=== PATIENT | male | born 1970 | race Caucasian/White ===

== ENCOUNTER 2021-06-04 02:20 | Day surgery (SDC) | payer OTHER, SELFPAY ==
[2021-05-20 14:18] VITALS: BMI 40.5
[2021-06-04 08:35] VITALS: BP 143/100; PULSE 75; RESP 16; TEMP 36.2; O2SAT 99; BMI 40.1
[2021-06-04] MEDS: LACTATED RINGERS 1,000 ML 150 ML IV CONT (08:47)
--- NOTE | 2021-06-04 09:11 | PM.HPGS ---
History of Present Illness History of Present Illness Consent: Risks, benefits, and alternatives have been discussed and questions answered. Patient agrees to proceed with procedure. Chief complaint: neoplasm screening Narrative: Pablo Cordon is a 51 year old male here for first screening colonoscopy Review of Systems Constitutional: Constitutional: Denies headache(s) and Denies weakness Eyes: Eyes: Denies blurry vision ENT: Reports Normal hearing present, Denies headache(s) and Denies neck pain Cardiovascular: Cardiovascular: Denies chest pain and Denies dyspnea Respiratory: Respiratory: Denies dyspnea Gastrointestinal: Gastrointestinal: Reports no additional gastrointestinal complaints Genitourinary: Genitourinary: Denies dysuria Musculoskeletal: Musculoskeletal: Denies neck pain Integumentary/Breasts: Skin/Breast: Denies dry skin Neurologic: Reports Normal hearing present, Denies headache(s) and Denies weakness Psychiatric: Psychiatric: Denies anxiety Endocrine: Endocrine: Denies change in body appearance Hematologic/Lymphatic: Hematologic/Lymphatic: Denies easy bleeding Allergic/Immunologic: Allergic/Immunologic: Denies urticaria PMFSH Past Medical History Medical History (Updated 04/12/21 @ 15:51 by BLANCA Rothman) Broken humerus Family History Family History (Updated 09/23/19 @ 14:43 by Oliva Rodriguez CMA) Mother Dementia Father CHF (congestive heart failure) Social History Social History (Updated 09/23/19 @ 14:44 by Oliva Rodriguez [facility]) Smoking status: Never smoker Alcohol intake: current Drinks per week: 5 Living arrangements: with family Spiritual care concerns: No Meds Home Medications and Allergies Home Medications Medication Instructions Recorded Confirmed Type fluticasone propionate 50 2 spray NASAL DAILY PRN 09/23/19 05/20/21 History mcg/actuation nasal spray,suspension Allergies Allergy/AdvReac Type Severity Reaction Status Date / Time Penicillins Allergy Mild Unknown Verified 06/04/21 08:35 Vital Signs Vital Signs - 24 hr 06/04/21 08:35 Temperature 97.1 F L Pulse Rate 75 Respiratory Rate 16 Blood Pressure 143/100 H Pulse Oximetry 99 Exam Const: General: comfortable and no acute distress HENMT: General nose exam: Normal nares present Eyes: General: appearance normal, both eyes and all related structures Neck: Neck: no JVD Resp: Auscultation: clear to auscultation bilaterally Cardio: Rate: regular rate Rhythm: regular rhythm GI: Inspection: non-distended GI Palp: Yes Soft to palpation Skin: General skin exam: normal color Neuro: General: gait normal Speech: normal speech Extrem: General: normal to inspection Psych: Mental Status: mental status grossly normal Assessment and Plan Assessment and plan (1) Screening for colon cancer: Code(s): Z12.11 - Encounter for screening for malignant neoplasm of colon Status: Acute Assessment and Plan: colonoscopy
--- NOTE | 2021-06-04 09:14 | P.PNAN_ITS ---
Anes - Initial Pre Proc Eval Procedure: Operation Date: 06/04/21 09:30 Proposed Procedures p Screening Colonoscopy - Mac Don MD Date/Time: 06/04/21 09:14 Surgeon: Mac Don MD Pre Op Diagnosis: neoplasm screening Patient Data Age: 51 Gender: M Height: 1.75 m Weight: 123.2 kg Last Vital Signs Temp 97.1 F L 06/04/21 08:35 Pulse 75 06/04/21 08:35 Resp 16 06/04/21 08:35 BP 143/100 H 06/04/21 08:35 Pulse Ox 99 06/04/21 08:35 Allergies Allergy/AdvReac Type Severity Reaction Status Date / Time Penicillins Allergy Mild Unknown Verified 06/04/21 08:35 Home Medications Medication Instructions Recorded Confirmed Type fluticasone propionate 50 2 spray NASAL DAILY PRN 09/23/19 05/20/21 History mcg/actuation nasal spray,suspension Patient hx anesthesia problems: none Family hx anesthesia problems: none Results Review: All pre-operative results and documents have been reviewed as part of the pre-operative evaluation. [facility] Past Medical History Medical History (Updated 06/04/21 @ 09:14 by Pablo Mims MD) Broken humerus Obesity Family History Family History (Updated 09/23/19 @ 14:43 by Oliva Rodriguez CMA) Mother Dementia Father CHF (congestive heart failure) Social History Social History (Updated 09/23/19 @ 14:44 by Oliva Rodriguez CMA) Smoking status: Never smoker Alcohol intake: current Drinks per week: 5 Living arrangements: with family Spiritual care concerns: No Anes - Eval Final PreProcedure Day of Procedure 06/04/21 09:14 Patient weight: morbidly obese Heart: regular rate and rhythm Lungs: clear to auscultation Airway: Mallampati scale class II Neurological: alert and oriented Last oral intake: >/= 8 hours ASA classification: III Emergent: no Anesthetic plan: proceed Anesthesia type and monitoring: general GIVS and standard monitoring Results Review: All pre-operative results and documents have been reviewed as part of the pre-operative evaluation. Informed Consent: The patient's anesthetic plan and its attendant risks and benefits were discussed with the patient/family/POA. Questions were solicited and answers provided to the satisfaction of the patient/family/POA.
[2021-06-04 09:28] VITALS: BP 121/74; PULSE 90; RESP 16; O2SAT 98
[2021-06-04 09:38] VITALS: BP 125/77; PULSE 67; RESP 16; O2SAT 98
[2021-06-04 09:47] VITALS: BP 132/80; PULSE 65; RESP 16; O2SAT 98
== END 2021-06-04 09:54 | disposition home or self-care (01) ==
PROVIDERS: PCP Internal Medicine; Visit Provider Internal Medicine Gastroenterology
PROC: 0DJD8ZZ Inspection of Lower Intestinal Tract, Via Natural or Artificial Opening Endoscopic (ICD-10-PCS; CPT 45378; principal; 2021-06-04 09:30)
DX: Z12.11 Encounter for screening for malignant neoplasm of colon (principal); E66.01 Morbid (severe) obesity due to excess calories; Z68.41 Body mass index [BMI] 40.0-44.9, adult
CPT/HCPCS: 45378; J2704; J7120

== ENCOUNTER 2022-07-14 08:06 | Emergency (ER) | payer OTHER, SELFPAY ==
--- NOTE | 2022-07-14 08:10 | ED.URI ---
HPI - URI/Sore Throat General Chief Complaint: Upper Respiratory Infection Stated Complaint: sore throat, headache, cough Time Seen by Provider: 07/14/22 08:28 Source: patient, RN notes reviewed and old records reviewed Mode of arrival: ambulatory Limitations: no limitations History of Present Illness HPI Narrative: 52-year-old male presents to the [facility] with complaints of sore throat, headache, cough for for 10 days. The sore throat has gotten worse over the last 5 days. Denies fevers, chest pain, abdominal pain. States he has been taking Mucinex. Has not been using his Flonase on a regular basis. Related Data Allergies Allergy/AdvReac Type Severity Reaction Status Date / Time Penicillins Allergy Mild Unknown Verified 07/14/22 08:21 Review of Systems Review of Systems: All systems reviewed & are unremarkable except as noted in HPI and below Constitutional: Constitutional: Reports as per HPI and Reports headache(s) Eyes: Eyes: Reports no additional eye complaints ENT: Reports as per HPI and Reports sore throat Cardiovascular: Cardiovascular: Reports no additional cardiovascular complaints, Denies chest pain and Denies dyspnea Respiratory: Respiratory: Reports as per HPI, Reports no additional respiratory complaints, Denies chest congestion, Reports cough and Denies dyspnea Gastrointestinal: Gastrointestinal: Reports no additional gastrointestinal complaints Musculoskeletal: Musculoskeletal: Reports no additional musculoskeletal complaints Integumentary/Breasts: Skin/Breast: Reports system reviewed and no additional complaints, except as docu Neurologic: Reports system reviewed and no additional complaints, except as documented Psychiatric: Psychiatric: Reports no additional psychiatric complaints Allergic/Immunologic: Allergic/Immunologic: Reports no additional allergic/immunologic complaints [facility] Past Medical History Medical History Broken humerus Obesity Family History Family History Mother Dementia Father CHF (congestive heart failure) Social History Social History Smoking status: Never smoker Alcohol intake: current Drinks per week: 5 Spiritual care concerns: No Comments At the time of my signature, I reviewed and agree with the nursing past medical, surgical, social, and family history. There is no relevant family history pertinent to the patient complaint. Exam Const: General: cooperative, healthy appearing, comfortable, no acute distress, well developed, alert and average body habitus Nutritional Appearance: well nourished and obese Orientation/consciousness: patient oriented x3 Limitations: no limitations HENMT: Head: normal to inspection Ears: hearing grossly normal bilaterally Face/Nose/Sinus: Normal external nose present, Normal nares present, Normal nasal mucous membranes and turbinates present and normal facial exam Face and sinus: normal facial exam Mouth: Yes Normal oral and palatal mucosa present, Yes lip normal and Yes moist mucous membranes Throat: uvula midline, posterior oropharynx abnormal erythema; no cobblstoning, no edema and no exudates and postnasal drainage Eyes: General: appearance normal, both eyes and all related structures Alignment and Position: alignment normal Periorbital: periorbital findings normal Conjunctivae: conjunctivae normal Pupils: Equal, round and reactive pupils present EOM: EOMs intact bilaterally Neck: Neck: normal visual inspection, full ROM, no lymphadenopathy and no meningeal signs Chest: Chest palpation & inspection: normal inspection of the chest Resp: Effort & Inspection: normal respiratory effort and able to speak in complete sentences Auscultation: clear to auscultation bilaterally, no crackles, no rales, no rhonchi and no wheezes Cardio: Rate: regular rat
[2022-07-14 08:16] VITALS: BP 124/88; PULSE 72; RESP 16; TEMP 36.7; O2SAT 99
== END 2022-07-14 08:54 | disposition home or self-care (01) ==
PROVIDERS: Emergency Provider Nurse Practitioner; PCP Internal Medicine
DX: J32.9 Chronic sinusitis, unspecified (principal); R09.82 Postnasal drip; E66.9 Obesity, unspecified; Z68.38 Body mass index [BMI] 38.0-38.9, adult
CPT/HCPCS: 87081; 87880; 99213; G0463

== ENCOUNTER 2023-04-27 18:23 | Observation (INO) | payer OTHER, SELFPAY ==
--- NOTE | ~2023-04-27 | XR_ITS ---
EXAMINATION: XR shoulder RT min 2V INDICATION: Right shoulder pain TECHNIQUE: Four views of the right shoulder are submitted. COMPARISON: None FINDINGS: Normal alignment. No fracture. There is moderate to severe osteoarthritis of the acromiocla vicular and glenohumeral joints. Soft tissues are unremarkable. IMPRESSION: 1. Osteoarthritis without acute osseous abnormality. Reviewed, dictated and finalized at location F.
--- NOTE | ~2023-04-27 | XR_ITS ---
EXAMINATION: XR hip LT 2V w AP pelvis INDICATION: Left hip pain TECHNIQUE: AP view the pelvis and two views of the left hip are obtained. COMPARISON: None available FINDINGS: There is mild osteoarthritis of the hips. Bone alignment is normal. There is no fracture. IMPRESSION: 1. No acute osseous abnormality. Reviewed, dictated and finalized at location F.
--- NOTE | ~2023-04-27 | CT_ITS ---
Non-contrast CT scan of the Pelvis Clinical indication: Left hip pain Technique: 2.5 mm axial scans were obtained through the pelvis without intravenous or oral contrast. Dose reduction technique was used on this scan by utilizing automated exposure control and iterative reconstruction technique. The dose-length product (DLP) was 818.82 mGy-cm. Findings: No fracture or dislocation seen. Joint spaces are preserved. No soft tissue mass or fluid c ollection seen. Visualized bowel loops are unremarkable. No pelvic lymphadenopathy seen. Urinary bladder unremarkable . Prostate gland and seminal vesicles are unremarkable. Impression: No significant abnormality seen. Reviewed, dictated and finalized at location . Impression: No significant abnormality seen.
--- NOTE | ~2023-04-27 | CT_ITS ---
EXAMINATION: CT brain wo con INDICATION: Transient alteration of awareness COMPARISON: None TECHNIQUE: Standard unenhanced head CT. The dose-length product (DLP) was 605.33 mGy-cm. The mA was a djusted according to patient size. Iterative reconstruction technique was employed. FINDINGS: No intracranial hemorrhage, acute infarction, or abnormal mass lesion. The ventricles are n ormal. No abnormal mass effect or midline shift. The fan-white matter differentiation is normal. The basal cisterns are patent. The orbits are normal. The paranasal sinuses, mastoids and calvarium are normal. IMPRESSION: 1. No acute intracranial abnormality. Reviewed, dictated and finalized at location F.
--- NOTE | ~2023-04-27 | MR_ITS ---
EXAMINATION: MR hip LT wo/w con DATE: 04/29/2023 13:02 INDICATION: Left hip injury now nonweightbearing due to pain TECHNIQUE: Magnetic resonance imaging (MRI) of the left hip was performed without and with 20 mL Mul tihance intravenous contrast. Sequences included full-field axial PD-weighted FS FSE and T1-weighted FSE, coronal of the pelvis with PD-weighted FS FSE, small field of view of the affected hip with axi al PD-weighted FS FSE, sagittal PD-weighted FS FSE and coronal PD weighted FS FSE. Additional radial T1-weighted FGR oriented orthogonal to the acetabular rim were obtained for evaluation of the labrum. Postcontrast T1-weighted FS FSE sequences were also obtained in the axial and coronal planes of the full pelvis and with small field of view of the left hip in the coronal plane. COMPARISON: None FINDINGS: Bones/labrum/cartilage: Alignment is normal. No fracture, avascular necrosis or pathologic marrow replacing process. Mild le ft hip osteoarthritis with nonuniform joint space narrowing and posterosuperior predominant partial-t hickness cartilage loss. Tiny degenerative subchondral cyst at the posterior superior rim of the left acetabulum. There is associated degeneration of the anterosuperior to posterior superior left acetab ular labrum. Mild lumbar spondylosis. Fluid: Symmetric physiologic amount of fluid within both hip joints. Soft tissues: No asymmetric muscular atrophy in the pelvis and proximal thighs. There is a tear of the proximal lef t iliotibial band and gluteal aponeurosis with associated mild feathery muscular edema in the superfi cial aspect of the underlying gluteus medius muscle belly and small amount fluid tracking along the d eep margin of the more distal iliotibial band. The tear appears to involve the majority the cross-sec tional width of the iliotibial band. The bilateral iliopsoas, gluteal medius and minimus and proximal hamstring tendons are normal. Limited evaluation of visceral organs of the pelvis is unremarkable. No pathologically enlarged pelvic/inguinal lymphadenopathy. IMPRESSION: 1. High-grade partial tear of the left proximal iliotibial band and gluteal aponeurosis. 2. Mild left hip osteoarthritis with likely chronic labral degeneration. Reviewed, dictated and finalized at location A. IMPRESSION: 1. High-grade partial tear of the left proximal iliotibial band and gluteal apo neurosis. 2. Mild left hip osteoarthritis with likely chronic labral degeneration.
[2023-04-27 18:25] VITALS: BP 133/89; PULSE 66; RESP 15; TEMP 37; O2SAT 99
--- NOTE | 2023-04-27 18:27 | ECG_ITS ---
Measurements Intervals [place] Rate: 65 P: 27 ID: [id number] QRS: 26 QRSD: 85 T: 3 QT: 399 QTc: 416 Interpretive Statements SINUS RHYTHM BORDERLINE T WAVE ABNORMALITY- INFERIOR LEADS BORDERLINE ECG NO PREVIOUS ECG AVAILABLE FOR COMPARISON Electronically Signed On 04-28-2023 6:28:52 CDT by Leon Horne D.O.
--- NOTE | 2023-04-27 18:59 | ED.SYNCOPE ---
HPI - Syncope General Chief Complaint: Syncope Stated Complaint: fall, syncopal episode, left hip pain Time Seen by Provider: 04/27/23 18:24 Source: patient Mode of arrival: EMS Limitations: no limitations History of Present Illness HPI narrative: Patient is a 53-year-old male who presents to the ED via EMS with report of left hip pain and syncope. Patient reports he was at a soccer practice tonight and went to kick a soccer ball when he developed pain in his left hip. He states he planted his left foot in the ground and went to kick with his right foot and felt pain and a large pop in his left hip. He states his hip felt very unstable, like the hip was trying to push forward out of the socket anytime he tried to bear weight on his left leg. Patient sat on the ground and waited for other parents to come help him. As he was walking off the field with the parents he began feeling dizzy, lightheaded, clammy, sweaty, nauseous. He then had a syncopal episode. He did not fall or hit his head. He regained consciousness quickly. Patient mentions when the syncopal episode happened he also felt a pop in his right shoulder. He does report chronic pain in his right shoulder, but currently worse than usual. He denies any chest pain, shortness of breath, abdominal pain, numbness, tingling, focal weakness. Related Data Home Medications Medication Instructions Recorded Confirmed No Home Medications 11/25/22 11/25/22 Allergies Allergy/AdvReac Type Severity Reaction Status Date / Time Penicillins Allergy Mild Unknown Verified 04/27/23 19:17 Review of Systems Review of Systems: CONSTITUTIONAL: Denies fever, chills, or sweats. EYES: Denies visual changes. CARDIOVASCULAR: Denies chest pain. RESPIRATORY: Denies dyspnea. GASTROINTESTINAL: See HPI. MUSCULOSKELETAL: See HPI. NEUROLOGIC: See HPI. All systems reviewed & are unremarkable except as noted in HPI and below PMFSH Past Medical History Medical History Broken humerus Obesity Family History Family History Mother Dementia Father CHF (congestive heart failure) Social History Social History (Reviewed 04/27/23 @ 19:08 by ASHLY Baugh Smoking status: Never smoker Alcohol intake: current Drinks per week: 5 Lack of Transportation: No Lack of Food: Never True Current Housing: I Have Housing Concerned About Future Housing: No Difficulty Paying Gas/Electric Bills: No Difficulty Paying for Meds: No Currently Unemployed: No Education: Bachelor's Degree Difficulty w/ Childcare or Family Care: No Living arrangements: with family Spiritual care concerns: No Exam Narrative: GENERAL: Well appearing, obese with BMI of 37.1, non-toxic, in no acute distress. HEAD: Normocephalic, atraumatic. NECK: Supple. No adenopathy, no masses. RESPIRATORY: Airway patent, respirations nonlabored. Clear to auscultation bilaterally, no rales, rhonchi, wheezing. CARDIOVASCULAR: Regular rate and rhythm without murmurs, rubs, or gallops. Pedal pulses 2+ and equal bilaterally. ABDOMINAL: Soft, nontender, nondistended, no hepatosplenomegaly. Normoactive BS. MUSCULOSKELETAL: Able to flex and extend at left hip, but apprehensive to move. Tenderness to palpation along posterior left hip joint. Sensation intact throughout left lower leg. Mild tenderness along superior right shoulder, over area of AC joint. No palpable deformity or tenting of skin. Sensation intact. SKIN: Warm, dry, normal color. No rashes. NEURO: A&O X3. Speech clear. Cranial nerves II-XII grossly intact. Steady gait. No ataxic movements. No focal deficits. PSYCHIATRIC: Appropriate mood and affect. Normal interaction. Course Vital Signs Vital signs: Vital Signs Temperature 98.6 F 04/27/23 18:25 Pulse Rate 66 04/27/23 18:25 Respiratory Rate 15 04/27
[2023-04-27 19:13] VITALS: BP 130/84; PULSE 66; RESP 13; O2SAT 98
[2023-04-27] MEDS: ONDANSETRON INJ 4 MG/2 ML VIAL IV PUSH ×2 (20:07→23:02)
[2023-04-27] MEDS: MORPHINE SULFATE (*CRX) 4 MG/ML INJ IV PUSH (20:07)
[2023-04-27] MEDS: SODIUM CHLORIDE 0.9% IV 1,000 ML 999 ML IV CONT ×2 (20:07→22:59)
[2023-04-27 20:26] LABS: Basophils Absolute Auto 0.1 K/mm3 (0.0-0.1); Basophils Percent Auto 0.6 % (0.2-1.2); Eosinophils Absolute Auto 0.2 K/mm3 (0-0.3); Eosinophils Percent Auto 1.1 % (0-4.4); Hematocrit 45.9 % (42.0-52.0); Hemoglobin 15.6 g/dL (14.0-18.0); Immature Granulocyte Absolute 0.05 K/mm3 (0.00-0.031); Immature Granulocyte Percent A 0.4 % (0-0.5); Lymphocytes Absolute Auto 1.61 K/mm3 (0.9-3.2); Lymphocytes Percent Auto 11.4 % (18.3-44.2); Mean Corpuscular Hemoglobin 31.6 pg (26-34); Mean Corpuscular Volume 92.9 fl (80-100); Monocytes Absolute Auto 1.1 K/mm3 (0.1-0.6); Monocytes Percent Auto 7.7 % (2.6-8.5); Neutrophils Absolute Auto 11.1 K/mm3 (1.3-6.7); Neutrophils Percent Auto 78.8 % (45.5-73.1); Platelet Count Result 279 k/mm3 (150-375); Red Blood Count 4.94 M/mm3 (4.6-6.20); Red Cell Distribution Width 12.7 % (11.5-14.5); White Blood Count 14.1 K/mm3 (4.5-10.0)
[2023-04-27 20:34] LABS: Magnesium 2.1 mg/dL (1.6-2.3)
[2023-04-27 20:36] LABS: Prothrombin Time 14.1 Seconds (11.1-14.7)
[2023-04-27 20:37] LABS: Partial Thromboplastin Time 24.1 SECONDS (22.3-36.8)
[2023-04-27 21:13] VITALS: BP 139/80; PULSE 66; RESP 12; O2SAT 100
[2023-04-27 21:49] LABS: Alanine Aminotransferase 39 U/L (6-50); Albumin Level 4.3 g/dL (3.5-5.1); Alkaline Phosphatase 65 U/L (38-126); Anion Gap 7 mmol/L (8-16); Aspartate Amino Transferase 36 U/L (17-59); Bilirubin,Total 0.5 mg/dL (0.2-1.3); Blood Urea Nitrogen 25 mg/dL (9-20); Calcium 8.8 mg/dL (8.4-10.2); Carbon Dioxide 26 mmol/L (22-30); Chloride 105 mmol/L (98-107); Estimated CRCL calculation 88 ml/min; Estimated Glomerular Filt Rate > 60; Glucose 103 mg/dL (65-110); Potassium 4.2 mmol/L (3.4-5.0); Sodium 138 mmol/L (137-145)
[2023-04-27 21:52] LABS: Troponin I < 0.012 ng/mL (0.000-0.034)
[2023-04-27 23:02] LABS: Glucose Point of Care 114 mg/dl (65-105)
[2023-04-27 23:05] VITALS: PULSE 64
[2023-04-27 23:06] VITALS: BP 142/78; PULSE 68; RESP 15; TEMP 36.3; O2SAT 97
[2023-04-28] VITALS (10 sets, daily range): BP systolic 110–155; BP diastolic 63–75; PULSE 60–88; RESP 15–20; TEMP 36.6–36.7; O2SAT 96–99; BMI 38.7
[2023-04-28] MEDS: KETOROLAC 30 MG/ML VIAL (*BKC) IV PUSH ×3 (00:56→19:45)
[2023-04-28] MEDS: SODIUM CHLORIDE 0.9% IV 1,000 ML 125 ML IV CONT ×2 (00:57→08:47)
--- NOTE | 2023-04-28 02:54 | ADMGEN ---
This patient, Pablo Cordon, was admitted to Medical Room 258-01. Patient/family oriented to hospital policies and general routines including ID bracelet, bed and alarms, visiting hours, pain management, procedures, bathroom and other care routines, personal items, smoking policy, room service/diet, and visiting hours. Information on how to activate the Rapid Response Team has been discussed. Patient/Family are encouraged to report perceived risks to care and to ask questions if they do not understand what they are told or what they should do.
[2023-04-28] MEDS: MORPHINE SULFATE (*CRX) 4 MG/ML INJ IV PUSH (08:14)
--- NOTE | 2023-04-28 08:59 | PM.IMHP ---
H&P: HPI History of Present Illness Date/Time: 04/28/23 08:59 Chief Complaint: Left hip pain right shoulder pain and syncopal episodes Narrative: Patient reports that he was playing soccer with his kids and he went to kick the ball planted his left foot and felt his hip bone move like it had gone out of place. Patient was unable to bear weight on hip and had to be assisted off the field. While being assisted off the field he passed out nearly and this caused pain to his right clavicle shoulder area. Patient has a past history of arthroscopic be to right shoulder no medical history no current medications he is up-to-date with yearly visits with primary care last having seen them couple of months ago. Patient also reports having a clean colonoscopy last year. He reports that sitting on the edge of the bed he feels some numbness in his left leg and severe pain in his left hip. orthopedics was requested by ER provider for evaluation. Appreciate recommendations. Patient's syncopal episodes appears to be related to pain. He also experiences nausea when they happen but he is not nauseous at rest. Review of Systems Review of Systems: All systems reviewed & are unremarkable except as noted in HPI and below PMFSH Past Medical History Medical History Broken humerus Obesity Family History Family History Mother Dementia Father CHF (congestive heart failure) Social History Social History Smoking status: Never smoker Alcohol intake: former Drinks per week: 5 Substance use: never Substance use type: does not use Lack of Transportation: No Lack of Food: Never True Current Housing: I Have Housing Concerned About Future Housing: No Difficulty Paying Gas/Electric Bills: No Difficulty Paying for Meds: No Currently Unemployed: No Education: Bachelor's Degree Difficulty w/ Childcare or Family Care: No Living arrangements: with family Spiritual care concerns: No Meds Home Medications and Allergies Home Medications Medication Instructions Recorded Confirmed Type No Home Medications 11/25/22 04/28/23 History Allergies Allergy/AdvReac Type Severity Reaction Status Date / Time Penicillins Allergy Mild Unknown Verified 04/28/23 06:18 Vital Signs Vital Signs - 24 hr 04/27/23 18:25 04/27/23 19:13 04/27/23 21:13 Temperature 37.0 C Pulse Rate 66 66 66 Respiratory Rate 15 13 12 Blood Pressure 133/89 130/84 139/80 Pulse Oximetry 99 98 100 Oxygen Delivery Room Air 04/27/23 23:05 04/27/23 23:06 04/28/23 01:09 Temperature 36.3 C L 36.6 C Pulse Rate 64 68 88 Respiratory Rate 15 15 Blood Pressure 142/78 H 110/63 Pulse Oximetry 97 99 Oxygen Delivery 04/28/23 03:00 04/28/23 04:00 04/28/23 05:00 Temperature 36.7 C Pulse Rate 88 60 72 Respiratory Rate 15 18 Blood Pressure 140/63 Pulse Oximetry 99 96 Oxygen Delivery Room Air Exam Narrative: GENERAL: Generally well appearing, alert and oriented, in no apparent distress. He is pleasant and conversant in full sentences. HEENT: Pupils are equally round and briskly reactive to light. Extraocular muscles are intact. Oral mucous membranes are moist without lesions. NECK: The patient has no noted JVD. No adenopathy is appreciated. CHEST/LUNGS: Lungs are clear bilaterally without rhonchi, rales, or wheezes. HEART: The patient has a regular rate and rhythm. No murmurs, rubs, or gallops are appreciated. Distal pulses are 2+. ABDOMEN: The patient's abdomen is soft, nontender, and nondistended. Bowel sounds are positive. No peritoneal signs EXTREMITIES: The patient has no peripheral edema. There is no focal long bone tenderness or deformity. Pain with palpation of left hip and pain to right clavicle area with arm ROM. Pt able to flex hip but not bear a
--- NOTE | 2023-04-28 14:54 | PM.CNOR ---
Assessment and Plan Assessment and plan (1) Contusion of left hip: Code(s): S70.02XA - Contusion of left hip, initial encounter Status: Acute Assessment and Plan: ANAIS IS HERE FOR F/U OF HIS LEFT HIP PAIN AFTER KICKING A SOCCER BALL, HE HAS TENDERNESS OVER THE LATERAL AND ANTERIOR LATERAL HIP REGION. HE HAS NO HAMSTRING PAIN OR TENDERNESS. HE HAS NO RECTUS FEMORIS PAIN. IMPRESSION IS POSSIBLE TENSOR FASCIA KATIE VERSUS GLUTEUS MEDIUS STRAIN VS TEAR. RECOMMEND MRI IMAGING OF THE LEFT HIP. FOR NOW WE WILL GET PT TO WORK WITH HIM. HE MAY BE WBAT FOR NOW. HE MAY HAVE THE MRI DONE AN INPATIENT OR AN OUT PATIENT IF HE CHOOSES, THEN F/U WITH MY OFFICE WELL ONCE THE MRI IS PREFORMED. (2) Right shoulder pain: Qualifiers: Chronicity: chronic Qualified Code(s): M25.511 - Pain in right shoulder; G89.29 - Other chronic pain Code(s): M25.511 - Pain in right shoulder Status: Acute History of Present Illness HPI Consult date: 04/28/23 Chief complaint: L Hip Pain/Strain, Vasovagal Near Syncope/Syncope Narrative: ANAIS WAS ADMITTED TO THE ED LAST EVENING C/O LEFT HIP PAIN AND SYNCOPAL EPISODE AFTER KICKING A SOCCER BALL AND TWISTED THE LEFT HIP. HE FELT PAIN AT THE POSTERIOR LATERAL REGION OF THE HIP AND HAD FEELINGS OF LIGHT HEADEDNESS WELL. HE WAS THEN PLACED ON THE GROUND BY FRIENDS AND WAS UNABLE TO BEAR WEIGHT ON THE LEFT LEG. HE WAS SEEN IN THE ED AND HAD XRAYS OF THE HIP AND HEAD CT WITH NO EVIDENCE OF ABNORMALITY. HE CURRENTLY COMPLAINS OF LEFT HIP AND RIGHT SHOULDER PAIN. HE STATES HIS PAIN IS LATERAL POSTERIOR AND HE HAS SOME GROIN PAIN WELL. HE HAS NO BUTTOCK PAIN OR PAIN OVER THE HAMSTRING REGION. HE DENIES ANY LOW BACK PAIN OR RADIATING PAIN DOWN THE THIGH OR LOWER LEG. HISTORY, EXAM AND RADIOGRAPHS REVIEWED WITH THE PATIENT. REFERRING PHYSICIAN RECORDS AND IMAGES REVIEWED. CONDITION, NATURE, ETIOLOGY AND COURSE OF NATURAL HISTORY REVIEWED. CONSERVATIVE AND OPERATIVE TREATMENT OPTIONS REVIEWED WELL THE RISKS AND BENEFITS OF EACH. Review of Systems Review of Systems: All systems reviewed & are unremarkable except as noted in HPI and below Musculoskeletal: Musculoskeletal: Reports no additional musculoskeletal complaints, Denies back pain, Denies atrophy, Denies deformity, Denies joint swelling, Denies numbness, Denies radiating pain into limb and Denies tingling Neurologic: Reports Normal hearing present, Denies Neuro-related abnormal movements, Denies Abnormal speech present, Denies burning sensations, Denies vertigo, Reports syncope, Denies loss of vision, Denies numbness, Denies radicular pain, Denies seizure-like activity, Denies Sensory deficit (Neuro), Denies tingling, Denies paresthesias and Denies tremor(s) PMFSH Past Medical History Medical History Broken humerus Obesity Family History Family History Mother Dementia Father CHF (congestive heart failure) Social History Social History Smoking status: Never smoker Alcohol intake: former Drinks per week: 5 Substance use: never Substance use type: does not use Lack of Transportation: No Lack of Food: Never True Current Housing: I Have Housing Concerned About Future Housing: No Difficulty Paying Gas/Electric Bills: No Difficulty Paying for Meds: No Currently Unemployed: No Education: Bachelor's Degree Difficulty w/ Childcare or Family Care: No Living arrangements: with family Spiritual care concerns: No Meds Home Medications and Allergies Home Medications Medication Instructions Recorded Confirmed Type No Home Medications 11/25/22 04/28/23 History Allergies Allergy/AdvReac Type Severity Reaction Status Date / Time Penicillins Allergy Mild Unknown Verified 04/28/23 06:18 Vital Signs Vital S
[2023-04-29] VITALS: PULSE 68
[2023-04-29 04:00] VITALS: PULSE 58
[2023-04-29 04:59] VITALS: BP 113/65; PULSE 62; RESP 20; TEMP 36.4; O2SAT 96
[2023-04-29 08:00] VITALS: PULSE 75
[2023-04-29] MEDS: KETOROLAC 30 MG/ML VIAL (*BKC) IV PUSH ×2 (08:19→16:03)
--- NOTE | 2023-04-29 08:25 | PM.PNORT ---
Progress Note: A&P Assessment and Plan (1) Contusion of left hip: Qualifiers: Encounter type: initial encounter Qualified Code(s): S70.02XA - Contusion of left hip, initial encounter Code(s): S70.02XA - Contusion of left hip, initial encounter Status: Acute (2) Strain of left hip: Qualifiers: Encounter type: initial encounter Qualified Code(s): S76.012A - Strain of muscle, fascia and tendon of left hip, initial encounter Code(s): S76.012A - Strain of muscle, fascia and tendon of left hip, initial encounter Status: Acute Assessment and Plan: Patient states pain a little bit better today. Able to get up with walker and moved to chair, bathroom. May continue weight-bearing and activity as tolerated. Use of walker. PT /OT. Awaiting MRI. (3) Right shoulder pain: Qualifiers: Chronicity: chronic Qualified Code(s): M25.511 - Pain in right shoulder; G89.29 - Other chronic pain Code(s): M25.511 - Pain in right shoulder Status: Acute Subjective Subjective Date/Time Seen: 04/29/23 08:25 Principal diagnosis: Left hip pain Interval history: states pain little bit better today. Localizes pain to the posterolateral left hip. Radiates down posterior thigh and into buttock. Denies numbness or tingling. Right shoulder pain with arm movement. Denies numbness or tingling. Exam Back/Spine/Pelvis: Back: no CVA tenderness, No sacral edema, No ecchymosis and No back tenderness Cervical Spine: normal cervical lordosis, cervical ROM normal, No cervical muscular tenderness, No pain with cervical ROM and No Cervical spine tenderness Thoracic/Lumbar Spine: thoracic and lumbar spine normal to inspection, thoraco-lumbar ROM normal, No paraspinal muscle tenderness, No thoraco-lumbar spasm and No lumbar spinal tenderness Neuro: Motor exam (neuro): 5/5 motor strength present throughout Sensory Exam: normal sensation Extrem: Right upper extremity: normal to inspection, normal capillary refill, shoulder/upper arm normal to inspection, tenderness of the clavicle mid-shaft; not of the A-C joint, not of the proximal humerus and not of the mid-shaft humerus, axillary nerve sensory function normal and crepitus; no swelling, no abrasions, no lacerations, no ecchymosis, no penetrating wound and no deformity and elbow/forearm normal to inspection, tenderness and swelling Left lower extremity: normal to inspection, normal capillary refill, hip/thigh Details: normal to inspection, tenderness Location: of the hip Location: laterally, anterolaterally and posterolaterally, normal ROM and abnormal ROM Details: pain with active ROM Details: with ABduction, with flexion, with internal rotation and with external rotation; no pain with passive ROM, knee Details: normal to inspection, normal ROM, knee ligament exam normal and Dillan's Test; no tenderness, no swelling and no crepitus, lower leg Details: normal to inspection and palpable cord; no tenderness and no localized swelling, ankle Details: normal to inspection and normal ROM; no tenderness and no swelling and foot Details: normal capillary refill, normal to inspection, toes with normal ROM and motor-sensory exam light-touch normal; no tenderness Objective Data Vital Signs Vital Signs: Vital Signs - 24 hr 04/28/23 12:00 04/28/23 14:55 04/28/23 16:00 Temperature 98 F Pulse Rate 68 67 70 Respiratory Rate 18 Blood Pressure 148/71 H Pulse Oximetry 97 Oxygen Delivery 04/28/23 20:24 04/28/23 20:00 04/28/23 20:00 Temperature 97.8 F Pulse Rate 66 66 65 Respiratory Rate 20 20 Blood Pressure 155/75 H Pulse Oximetry 97 97 Oxygen Delivery Room Air 04/29/23 00:00 04/29/23 04:00 04/29/23 04:59 Temperature 97.6 F Pulse Rate 68 58 L 62 Respiratory Rate 20 Blood Pressure 113/65 Pulse Oximetry 96 Oxygen Delivery Intake/Output Intake/Output: Intake & Output 04/26/23 04/27/23 04/28/2304/29
--- NOTE | 2023-04-29 12:19 | PM.DS ---
DS: Admitting Diagnosis Discharge Date 04/29/2023 Admitting Diagnosis syncope, strain of left hip, unable to ambulate, right shoulder pain DS: Discharge Diagnosis Discharge Diagnosis (1) Syncope: Code(s): R55 - Syncope and collapse Status: Acute (2) Strain of left hip: Qualifiers: Encounter type: initial encounter Qualified Code(s): S76.012A - Strain of muscle, fascia and tendon of left hip, initial encounter Code(s): S76.012A - Strain of muscle, fascia and tendon of left hip, initial encounter Status: Acute (3) Unable to ambulate: Code(s): R26.2 - Difficulty in walking, not elsewhere classified Status: Acute (4) Right shoulder pain: Qualifiers: Chronicity: chronic Qualified Code(s): M25.511 - Pain in right shoulder; G89.29 - Other chronic pain Code(s): M25.511 - Pain in right shoulder Status: Acute Plan orthopedics consulted, appreciate recommendations and plan. CT of the pelvis and x-ray pelvis and hip negative for fracture. Patient describes laxity in the joint. Suspect significant soft tissue injury. Patient complains of right clavicular pain, right shoulder x-ray is negative. No bony instability noted to clavicular palpation. Suspect soft tissue injury. Home medications: Patient does not take any medications at home diet: Regular diet activity: As tolerated at this time pending Orthopedics evaluation, patient having trouble dangling legs over the bed PT and OT requested by the ER please defer evaluation until after orthopedics plan patient admitted to main campus medical center due to syncope. If no arrhythmia will discontinue telemetry tomorrow pain control: Tylenol, ketorolac, morphine p.r.n. code status: Full code DS: Summary Hospital Course Reason for hospitalization: this is a 53-year-old male patient who is admitted to the hospital due to inability to ambulate after planting his left foot to kick a soccer ball and collapsing from pain. While being assisted off field patient had a syncopal episode which caused his right shoulder to get pulled as others were trying to hold him up. Hospital Course: Patient had syncopal episode when trying to bear weight on his left leg so he was brought to the emergency department for evaluation. No fractured bones noted. Patient was attempting to discharge home and had another syncopal event with weight-bearing while in the emergency department. For this reason patient was admitted to the hospital. He was seen in consultation by Orthopedic surgery. MRI of the hip was ordered. Patient improved with IV concern for lack was able to participate with therapy including ambulating with a walker and able to climb a couple stairs. Patient has 2 steps to get into his home. While awaiting MRI results patient stated that he felt he could handle discharge home with ibuprofen as he was doing well with therapy. He is aware that MRI results are not finalized at time of discharge. He is aware that he will need orthopedic follow-up and that orthopedic service would write for outpatient therapy services. Work note provided. MRI results were available next morning for me to review, patient has near complete tear of proximal left iliotibial band as well as an additional tear the gluteus. I called results to patient and reinforced need to follow up with Orthopedic surgery at likely need for outpatient therapy services. Status at Discharge Cognitive/behavioral status at discharge: Awake alert oriented and very pleasant Functional status at discharge: uses cane/walker Overall status at discharge: patient is progressing back to baseline Time Spent with Patient Time attestation: Total time spent providing and/or coordinating discharge services: Time spent: Greater than 30 minutes Specific discharge activities: [id number] discussion regarding MRI results not being complete but patient still wishing to discharge. Exam N
[2023-04-29 14:00] VITALS: BP 153/80; PULSE 63; RESP 16; TEMP 36.7; O2SAT 98
== END 2023-04-29 18:47 | disposition home or self-care (01) ==
LOC: ANHED 18:47 → ANH2MED 04-28 01:03
PROVIDERS: Admitting Provider Internal Medicine; Emergency Provider Physician Assistant; PCP Internal Medicine; Visit Provider Internal Medicine
DX: R55 Syncope and collapse (principal); S70.02XA Contusion of left hip, initial encounter; S76.012A Strain of muscle, fascia and tendon of left hip, initial encounter; G89.29 Other chronic pain; M25.511 Pain in right shoulder; M19.011 Primary osteoarthritis, right shoulder; E66.9 Obesity, unspecified; Z68.38 Body mass index [BMI] 38.0-38.9, adult; F10.90 Alcohol use, unspecified, uncomplicated
CPT/HCPCS: 36415; 70450; 72192; 73030; 73502; 73723; 80053; 82948; 83735; 84484; 85025; 85610; 85730; 93005; 96361; 96374; 96375; 96376; 97116; 97161; 97165; 99285; A9577; G0378; J1885; J2270; J2405; J7030

== ENCOUNTER 2023-07-18 15:00 | Outpatient (RCR) | payer OTHER, SELFPAY ==
--- NOTE | 2023-05-23 15:15 | OPREHPOC ---
Outpatient Therapy Plan of Care This is a Multidisciplinary Plan of Care that may contain components documented by all disciplines (PT, OT, and ST.) PT Problem 1 PT Problem #1 Knowledge Deficit PT Goal 1 Goal Pt to be IND with issued HEP Target Visit 16 PT Problem 2 PT Problem #2 Pain PT Goal 1 Goal Pt to report R shoulder pain no greater than 3/10 in the last week. Target Visit 16 PT Goal 2 Goal Pt to report L hip pain no greater than 3/10 in the last week Target Visit 16 PT Problem 3 PT Problem #3 Impaired Range of Motion PT Goal 1 Goal Pt to improve active shoulder flexion and abduction to 140 deg ea Target Visit 16 PT Goal 2 Goal Pt to report no increase in pain with passive L hip ROM Target Visit 16 PT Problem 4 PT Problem #4 Impaired Gait PT Goal 1 Goal Pt to ambulate 300ft during the 2 min walk test. Target Visit 16 PT Goal 2 Goal Pt to ambulate without gait deviations and with equal weight distribution Target Visit 16 PT Problem 5 PT Problem #5 Impaired Functional Mobil PT Goal 1 Goal Pt to be able to lift 30lb from ground level Target Visit 16 PT Goal 2 Goal Pt to be able to demonstrate floor to stand transfer without support to simulate playing with his kids. Target Visit 16
--- NOTE | 2023-05-23 15:15 | PTOPEVAL1 ---
Assessment and note entered by Kourtney Chan, PT, DPT Evaluation Information Assessment Status Evaluation Diagnosis R clavicle fracture Onset 04/27/23 Subjective Information Pt states he was playing soccer, planted his L leg to kick with his R leg and felt a huge pop in his L leg that caused him to fall. He states as people were helping him up he had a vasovagal response and started to pass out. The other people assisting him prevented his fall and ended up breaking his clavicle. Pt states since this all happened his leg has gotten better, it doesn't feel completely right, but better. He states the shoulder is still very painful and feels very unstable. Pt has a desk job, likes to workout, and play soccer with his sons. Reported Pain Level Pain Score 5,3: Self Report Assessment PT Clinical Summary Pablo presents to therapy today for his initial evaluation with a diagnosis of a proximal L ITB tear, and R clavicle fracture. Today he demonstrates decreased active shoulder ROM on his R side, limited by pain. He demonstrates pain reported with passive L hip ROM and mild resistance. He ambulates with an antalgic pattern with decreased weight shift to the L side. Skilled therapy services are indicated to improve L hip and R shoulder ROM and strength, to improve functional mobility, to normalize gait pattern, and to return to PLOF. Plan of Care Interventions Electrical Stimulation,Gait Training,Hot Pack/Cold Pack,Manual Therapy,Neuro Re-education,Patient/ Caregiver Educati,Therapeutic Activities, Therapeutic Exercise PT Services Indicated Yes Treatment Frequency and 2x/wk for 16 visits Duration These treatments will address the objective and functional deficits as defined above. The patient will be advanced safely and appropriately in order for the patient to progress towards his/her prior level of function. Additional exercises will be introduced and as well as a comprehensive home exercise program upon discharge, if needed, ?to ensure carryover of functional gains achieved in the clinic. This treatment plan has been reviewed and agreement upon by the patient.
--- NOTE | 2023-06-20 16:47 | PTOPPROGNS ---
Assessment and note entered by Kourtney Chan, PT, DPT Evaluation Information Assessment Status Progress Diagnosis R clavicle fracture Onset 04/27/23 Subjective Information Pt states he can do just about anything with his leg but it just feels not right . He states there is still very specific point tenderness around his ITB. He states he does not really have pain, just random soreness with some activities. He states his shoulder is doing pretty good, just sore in the morning. He states he does not feel 100% yet. Assessment PT Clinical Summary Pablo presents to therapy today for his progress report following 8 visits of skilled therapy to treat his diagnosis of a proximal L ITB tear, and R clavicle fracture. Today he demonstrates improved passive hip ROM in all directions and improved shoulder ROM in all directions but shoulder motions are still decreased from his L shoulder. He demonstrates improve L hip strength but this is still decreased from his R hip. He is now ambulating without a device and without compensations. He is making good progress towards his therapy goals. Continuation of skilled therapy services are indicated to continue to progress ROM and strength, to improve functional mobility, and to return to PLOF. Plan of Care Interventions Electrical Stimulation,Gait Training,Hot Pack/Cold Pack,Manual Therapy,Neuro Re-education,Patient/ Caregiver Educati,Therapeutic Activities, Therapeutic Exercise PT Services Indicated Yes Treatment Frequency and 2x/wk for 16 visits Duration These treatments will address the objective and functional deficits as defined above. The patient will be advanced safely and appropriately in order for the patient to progress towards his/her prior level of function. Additional exercises will be introduced and as well as a comprehensive home exercise program upon discharge, if needed, ?to ensure carryover of functional gains achieved in the clinic. This treatment plan has been reviewed and agreement upon by the patient.
--- NOTE | 2023-07-18 16:18 | PTOPDC ---
Assessment and note entered by Kourtney Chan, PT, DPT Evaluation Information Assessment Status Discharge Diagnosis R clavicle fracture Onset 04/27/23 Subjective Information Pt states overall his shoulder is about back to where it was, if not better than it was before the injury. He states the hip is getting better but doesn't feel back to normal. He states he can do what he needs to do for basically daily life needs . He does not feel like he could run or play soccer with his kids. Reported Pain Level Pain Score 2,3: Self Report Assessment PT Clinical Summary Pablo presents to therapy today for his progress report following 13 visits of skilled therapy to treat his diagnosis of a proximal L ITB tear, and R clavicle fracture. Today he reports R shoulder function greater than 100% compared to prior to his injury. He reports L hip functional about 80% compared to his baseline. Today we address any concerns he has with his recovery and discussed returning to recreational activities. He has met or progressed well towards all of his therapy goals and no longer requires skilled services. He will be discharged at this time. Plan of Care PT Services Indicated No
== END 2023-07-19 11:09 | disposition home or self-care (01) ==
LOC: ANHGOSHPT 15:00
PROVIDERS: PCP Internal Medicine; Visit Provider Orthopaedic Surgery
DX: S42.001D Fracture of unspecified part of right clavicle, subsequent encounter for fracture with routine healing (principal); S76.012D Strain of muscle, fascia and tendon of left hip, subsequent encounter; S70.02XD Contusion of left hip, subsequent encounter; M25.511 Pain in right shoulder; M19.011 Primary osteoarthritis, right shoulder
CPT/HCPCS: 97014; 97110; 97140; 97162; 97530; G0283

== ENCOUNTER 2024-04-22 13:40 | Outpatient (CLI) | payer OTHER, SELFPAY ==
--- NOTE | ~2024-04-22 | XR_ITS ---
XR hip LT 2V w AP pelvis Ordering provider: Roe George MD History: . M25.552 - Pain in left hip . Comparison: April 27, 2023 FINDINGS: BONES: No acute fracture or dislocation. HIP JOINT SPACES: Normal. SACROILIAC JOINT SPACES/LUMBAR SPINE: The sacroiliac joint spaces are normal. Mild degenerative bill es of the visualized lower lumbar spine. PUBIC SYMPHYSIS: Normal. SOFT TISSUES: Normal. IMPRESSION: No acute osseous abnormality pelvis and left hip. Reviewed, dictated and finalized at location A.
== END 2024-04-22 13:41 | disposition home or self-care (01) ==
LOC: MICIMG 13:42
PROVIDERS: PCP Orthopaedic Surgery; Visit Provider Orthopaedic Surgery
DX: M25.552 Pain in left hip (principal)
CPT/HCPCS: 73502

== ENCOUNTER 2025-06-01 07:21 | Outpatient (CLI) | payer BC, SELFPAY ==
--- NOTE | ~2025-06-01 | XR_ITS ---
EXAMINATION: XR hip RT 2V w AP pelvis, 06/01/2025 8:00 CDT HISTORY: M25.551 - Pain in right hip COMPARISON: No comparisons available. Findings: No acute fracture or malalignment. No significant degenerative changes. Soft tissues unremarkable. Impression: No acute fracture or malalignment. Reviewed, dictated and finalized at location P. Impression: No acute fracture or malalignment.
--- NOTE | ~2025-06-01 | MR_ITS ---
EXAMINATION: MR lumbar spine wo con DATE: 06/01/2025 07:56 INDICATION: Radiculopathy, lumbar region. TECHNIQUE: Magnetic resonance imaging (MRI) of the lumbar spine was performed without intravenous contrast. Sequences included sagittal T2-weighted FSE, sagittal T2-weighted FS FSE, sagittal T1-weighted FSE, and axial T2-weighted FSE. COMPARISON: None FINDINGS: There is 6 degrees levocurvature lower lumbar spine. There is 3 mm retrolisthesis of L5 on S1. Vertebral body heights are normal. There is mildly decreased disc height and L4-L5 and L5-S1. The distal spinal cord signal intensity is normal. The conus medullaris is at L1-L2. The following disc levels are specifically discussed: L1-L2: There is a right central protrusion with annular fissure. There is mild bilateral facet joint osteoarthritis. There is no neural foraminal stenosis. There is mild central canal stenosis. L2-L3: The disc is bulging. There is mild bilateral facet joint osteoarthritis. There is mild bilateral neural foraminal stenosis. There is mild central canal stenosis. L3-L4: The disc is bulging and has an annular fissure. There is severe bilateral facet joint osteoarthritis. There is mild bilateral neural foraminal stenosis. There is mild central canal stenosis. L4-L5: The disc is bulging and has an annular fissure. There is severe bilateral facet joint osteoarthritis. There is moderate bilateral neural foraminal stenosis. There is mild central canal stenosis. L5-S1: The disc is bulging with superimposed right central extrusion with mass effect on right S1 nerve root in right lateral recess. There is severe bilateral facet joint osteoarthritis. There is mild bilateral neural foraminal stenosis. There is mild central canal stenosis. There is moderate stenosis of right lateral recess. IMPRESSION: 1. Moderate lumbar spondylosis. Of note, an extrusion at L5-S1 exerts mass effect on right S1 nerve root. Reviewed, dictated and finalized at location E. IMPRESSION: 1. Moderate lumbar spondylosis. Of note, an extrusion at L5-S1 exerts mass effe ct on right S1 nerve root.
== END 2025-06-01 07:22 | disposition home or self-care (01) ==
PROVIDERS: PCP Internal Medicine; Visit Provider Internal Medicine
DX: M25.551 Pain in right hip (principal); M47.26 Other spondylosis with radiculopathy, lumbar region
CPT/HCPCS: 72148; 73502